=== PATIENT | female | born 1940 | race Caucasian/White ===

== ENCOUNTER 2016-05-05 14:04 | Emergency (ER) | payer MEDICARE, OTHER ==
[2016-05-05 14:16] VITALS: BP 149/88
[2016-05-05] MEDS ORDERED: Albuterol/Ipratropium 3.0-0.5 MG/3 ML Neb Soln NEB ONE (14:43)
--- NOTE | 2016-05-05 15:12 | EDM.PDOC ---
ED HISTORY OF PRESENT ILLNESS - General Chief Complaint: Respiratory Problem Stated Complaint: cough, chest congestion Time Seen by Provider: 05/05/16 14:15 Source of Information: Reports: Patient History Limitations: Reports: No limitations - History of Present Illness INITIAL COMMENTS - FREE TEXT/NARRATIVE: Fell out of bed last week, has sore ribs but not enough to cause limitations in breathing. 3 days later started to cough. No F/C, no upper respiratory symptoms. Symptom Onset Date: 05/01/16 Severity: moderate Location, General: Reports: chest Improves with: Reports: None Worsens with: Reports: None Associated Symptoms (General): Reports: cough (persistent). Denies: diaphoresis , fever/chills, shortness of breath - Related Data Allergies/ADRs: Allergies Allergy/AdvReac Type Severity Reaction Status Date / Time Penicillins Allergy Cannot Verified 05/05/16 14:05 Remember Home Meds: Home Meds Fenofibrate 160 mg PO DAILY 10/03/15 [History] Ibandronate Sodium [Boniva] 150 mg PO ASDIRECTED 10/03/15 [History] Moexipril HCl [Moexipril] 15 mg PO DAILY 10/03/15 [History] Benzonatate [Tessalon Perles] 100 mg PO QID 05/05/16 [History] Codeine/Promethazine [Phenergan with Codeine] 5 ml PO BEDTIME 05/05/16 [History] Sertraline [Zoloft] 12.5 mg PO DAILY 05/05/16 [History] Past Medical History HEENT History: Reports: Impaired vision Cardiovascular History: Reports: High cholesterol, Hypertension Genitourinary History: Reports: Retention, urinary, Other (see below) Other Genitourinary History: uterine/bladder prolapse [employer]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 Denies: fever, chills HEENT: Reports: No symptoms Respiratory: Reports: Wheezing, Cough. Denies: Shortness of Breath, Pleuritic Chest Pain, Sputum Cardiovascular: Reports: No symptoms Endocrine: Reports: no symptoms GI/Abdominal: Reports: No symptoms : Reports: no symptoms Musculoskeletal: Reports: no symptoms Skin: Reports: no symptoms Neurological: Reports: No Symptoms Psychiatric: Reports: No symptoms Hematologic/Lymphatic: Reports: no symptoms ED EXAM, GENERAL - Physical Exam Exam: See Below Exam Limited By: No limitations General Appearance: alert, WD/WN, no apparent distress Eye Exam: bilateral eye: EOMI, PERRL Ears: normal external exam Nose: normal inspection, normal mucosa Throat/Mouth: Normal inspection, Normal oropharynx, No airway compromise Head: atraumatic, normocephalic Neck: normal inspection, supple, non-tender, full range of motion Respiratory/Chest: no respiratory distress, no accessory muscle use, rhonchi, other (persistent cough) Cardiovascular: normal peripheral pulses, regular rate, rhythm, no murmur GI/Abdominal: soft, non tender Back Exam: normal inspection, full range of motion Extremities: normal range of motion, normal capillary refill Neurological: alert, oriented, CN II-XII intact, normal cognition, normal gait, no motor/sensory deficits Psychiatric: normal affect, normal mood Skin Exam: Warm, Dry, Intact, Normal color, No rash Lymphatic: no adenopathy Course - Vital Signs Last Recorded V/S: Last Vital Signs Temp 36.6 C 05/05/16 14:08 Pulse 92 05/05/16 14:08 Resp 22 H 05/05/16 14:08 BP 149/88 H 05/05/16 14:08 Pulse Ox 97 05/05/16 14:08 - Orders/Labs/Meds Orders: Active Orders 24 hr Category Date Time Status RT Aerosol Therapy [RC] ASDIRECTED Care 05/05/16 14:44 Active Chest 2V [CR] Stat Exams 05/05/16 14:43 Ordered Meds: Medications Discontinued Medications Generic Name Dose Route Start Last Admin Trade Name Freq PRN Reason Stop Dose Admin Albuterol/Ipratropium 3 ml 05/05/16 14:43 05/05/16 15:06 Duoneb 3.0-0.5 Mg/3 Ml NEB 05/05/16 14:44 3 ml ONETIME ONE Administration - Re-Assessments/Exams Free Text/Narrative Re-Assessment/Exam: 05/05/16 15:13 Decreased rhonchi with breathing treatment Departure - Departure Time of Disposition: 15:13 Disposition: Home, Self-Care 01 Condition: good Clinical Impression: Bronchitis, Rib injury Instructions: Rib Contusion, Acute Bronchitis Referrals: Gisela Zamora PA [Primary Care Provider] - Forms: ED Department Discharge Additional Instructions: 1. Take the antibiotic (Zithromax) 2. Take advil or tylenol for aches and pains 3. Use the Incentive Spirometer frequently during the day for the next few days to keep the lungs open 4. Use Robitussin DM or similar medication to help with the cough - Problem List Review Problem List Initiated/Reviewed/Updated: No - My Orders Last 24 Hours: My Active Orders 05/05/16 14:43 Chest 2V [CR] Stat 05/05/16 14:44 RT Aerosol Therapy [RC] ASDIRECTED - Assessment/Plan Last 24 Hours: My Active Orders 05/05/16 14:43 Chest 2V [CR] Stat 05/05/16 14:44 RT Aerosol Therapy [RC] ASDIRECTED Assessment:: 1. Rib contusion 2. Bronchitis with long h/o second-hand smoke Plan: 1. Zithromax 2. Phenergan with codeine 3. Robitussin 4. Recheck with PCP in 4-7 days
== END 2016-05-05 15:50 | disposition home or self-care (01) ==
LOC: LL.ED 14:04
DX: J40 Bronchitis, not specified as acute or chronic (principal); S29.8XXA Other specified injuries of thorax, initial encounter; E78.00 Pure hypercholesterolemia, unspecified; I10 Essential (primary) hypertension; F41.9 Anxiety disorder, unspecified; F32.9 Major depressive disorder, single episode, unspecified; Z88.0 Allergy status to penicillin; W06.XXXA Fall from bed, initial encounter
CPT/HCPCS: 71020; 94640; 99283

== ENCOUNTER 2016-08-21 20:15 | Emergency (ER) | payer MEDICARE, OTHER ==
--- NOTE | 2016-08-21 20:24 | EDM.PDOC ---
ED HPI GENERAL MEDICAL PROBLEM - General Chief Complaint: General Stated Complaint: burning/bloody discharge Time Seen by Provider: 08/21/16 20:15 Source of Information: Reports: Patient, Old Records ([facility] chart/EMR), Other (Friend) History Limitations: Reports: No Limitations - History of Present Illness INITIAL COMMENTS - FREE TEXT/NARRATIVE: Patient was brought to the emergency room via private automobile by her friend for evaluation of 6/10 burning sensation from her vaginal area with symptoms starting at about 10 AM this morning. She also complains of some nonspecific dysuria and urinary frequency since that time him a however no history of urinary incontinence, etc. The patient did complete a 10 day course of Septra earlier this morning secondary to suspected UTI, although her regular provider apparently did not conduct any urine evaluations? She does state that she is having a possible mild bloodstained vaginal discharge since this morning when wiping and also noticed this in her underwear. By patient history she had her pessary removed on a permanent basis on 06/17/16 secondary to nonspecific irritation in the vaginal area from this treatment. Her uterine prolapse has otherwise been stable, although this is severe in nature. She denies any colic or other UTI symptoms. No recent history of abdominal pain, heartburn, nausea, diarrhea, melena, gross hematochezia, or any food intolerance, including fatty foods, etc.. The patient also denies any recent fever, cough, wheezing, dyspnea , etc.. The patient denies any chest pain/pressure, heart flutter, dizziness, orthostasis, orthopnea, diaphoresis, paresthesias, recent decreased exercise tolerance, or any other anginal-type symptoms. diffuse urinary Onset: Gradual Onset Date: 08/21/16 Onset Time: 10:00 Duration: Constant, Getting Worse Location: Reports: Other (Vaginal area as above) Quality: Reports: Burning Severity: Moderate Improves with: Reports: None Worsens with: Reports: None Context: Reports: Other (As above) Associated Symptoms: Denies: Confusion, Chest Pain, Cough, Diaphoresis, Fever/ Chills, Loss of Appetite, Malaise, Nausea/Vomiting, Shortness of Breath, Syncope , Weakness Vaginal Pain Score (Numeric/FACES): 6 - Related Data Allergies Allergy/AdvReac Type Severity Reaction Status Date / Time Penicillins Allergy Cannot Verified 05/05/16 14:05 Remember Home Meds: Home Meds Fenofibrate 160 mg PO DAILY 10/03/15 [History] Ibandronate Sodium [Boniva] 150 mg PO ASDIRECTED 10/03/15 [History] Moexipril HCl [Moexipril] 15 mg PO DAILY 10/03/15 [History] Sertraline [Zoloft] 12.5 mg PO DAILY 05/05/16 [History] Past Medical History HEENT History: Reports: Cataract, Impaired Vision, Other (See Below). Denies: Allergic Rhinitis, Glaucoma, Hard of Hearing, Macular Degeneration, Otitis Media , Retinal Detachment Other HEENT History: Patient wears glasses Cardiovascular History: Reports: High Cholesterol, Hypertension. Denies: Afib, Aneurysm, Arrhythmia, Blood Clots/VTE/DVT, CAD, Heart Murmur, [place], PVD, Syncope Respiratory History: Denies: Asthma, COPD, PE, Pneumothorax, Sleep Apnea Gastrointestinal History: Reports: Diverticulosis, Other (See Below). Denies: Bowel Obstruction, Celiac Disease, Cholelithiasis, Chronic Constipation, Chronic Diarrhea, Colon Polyp, Gastritis, GERD, GI Bleed, Hiatal Hernia, Inflammatory Bowel Disease, Irritable Bowel Syndrome, PUD Other Gastrointestinal History: History of diverticulitis Genitourinary History: Reports: Retention, Urinary, UTI, Recurrent, Other (See Below). Denies: Acute Renal Failure, Chronic Renal Insuffiency, Renal Calculus , STD, Urinary Incontinence Other Genitourinary History: uterine/bladder prolapse [employer]NAGEMENT History: Reports: , Prolapsed Uterus. Denies: PID, Spontaneous : 3 Para: 3 (Full term without complications during pregnancies or deliveries) LMP (Approximate): Menopausal Other OB/BYN History: Menopause at age 44, note moderate uterine prolapse with previous pessary therapy Musculoskeletal History: Reports: Arthritis, Back Pain, Chronic, Fracture, Neck Pain, Chronic, Osteoarthritis, Osteoporosis, Other (See Below). Denies: Amputation, Gout, RA, SLE Other Musculoskeletal History: Mid thoracic vertebral body compression fracture in April 2016 in the T7 versus T8 region by x-ray Neurological History: Reports: Seizure, Other (See Below). Denies: Cerebral Aneurysms, Concussion, CVA, Headaches, Chronic, Head Trauma, Migraines, MS, Neuropathy, Peripheral, Parkinson's, TIA Other Neuro History: Unknown type of seizure in 1990 with workup as below and antiseizure medications for only one year Psychiatric History: Reports: Anxiety, Depression. Denies: Abuse, Victim of, ADD, ADHD, Addiction, Psych Hospitalization(s), PTSD, Suicide Attempt, Suicidal Ideation Endocrine/Metabolic History: Reports: Obesity/BMI 30+, Osteoporosis. Denies: Diabetes, Type I, Diabetes, Type II, Hypothyroidism, IDDM Hematologic History: Reports: None. Denies: Anemia, Blood Transfusion(s), Iron Deficiency Immunologic History: Reports: None. Denies: AIDS, HIV, SLE Oncologic (Cancer) History: Reports: None. Denies: Basal Cell Carcinoma, Cervix , Hodgkin's Lymphoma, Leukemia, Lymphoma, Malignant Melanoma, Non-Hodgkin's Lymphoma, Squamous Cell Carcinoma Dermatologic History: Reports: None. Denies: Eczema, Psoriasis - Infectious Disease History Infectious Disease History: Reports: Chicken Pox, Measles. Denies: C-Difficile , Meningitis, Mononucleosis, MRSA, Mumps, Pertussis (Whooping Cough), Rheumatic Fever, Rubella, Scarlet Fever, Shingles, VRE - Past Surgical History Head Surgeries/Procedures: Reports: None HEENT Surgical History: Reports: Adenoidectomy, Cataract Surgery, Tonsillectomy. Denies: Eye Surgery, Laser Surgery, LASIK, Myringotomy w Tube(s) , Naso-Sinus Surgery, Oral Surgery Other HEENT Surgeries/Procedures: Tonsillectomy and adenoidectomy at about age 11, bilateral cataract surgery in 2017 Cardiovascular Surgical History: Reports: None. Denies: Varicose, Vascular Surgery Respiratory Surgical History: Reports: None. Denies: Lung Biopsies, Thoracentesis GI Surgical History: Reports: Colonoscopy, Other (See Below). Denies: Appendectomy, Cholecystectomy, EGD, Hernia, Abdominal, Hernia, Inguinal, Hernia Repair/Other, Polypectomy Other GI Surgeries/Procedures: Colonoscopy in 2005 Female Surgical History: Reports: Tubal Ligation, Other (See Below). Denies : Section, Oophorectomy, Salpingo-Oophorectomy Other Female Surgeries/Procedures: Bilateral tubal ligation in 1979 Endocrine Surgical History: Reports: None. Denies: Thyroid Biopsy Neurological Surgical History: Reports: Thoracic Spine, Vertebroplasty, Other ( See Below). Denies: C-Spine, Discectomy, Laminectomy, Lumbar Spine, Spinal Fusion Other Neurological Surgeries/Procedures: T7 versus T8 kyphoplasty in May 2016 Musculoskeletal Surgical History: Reports: Knee Replacement, Other (See Below). Denies: Arthroscopic Knee, Arthroscopic Procedure, ORIF, Shoulder Surgery Other Musculoskeletal Surgeries/Procedures:: Left knee TEP in 2014 with right knee TEP in 2016 Oncologic Surgical History: Reports: None Dermatological Surgical History: Reports: None - Past Imaging History Past Imaging History: Reports: CAT Scan (Head in 1990), DEXA Scan (06/25/16 with previous evaluation on 02/28/11), EEG (1990), MRI (Left knee on 08/18/12) Social & Family History - Tobacco Use Smoking Status *Q: Never Smoker Smoking Cessation Information Provided To Patient: No Second Hand Smoke Exposure: No Second Hand Smoke Education Provided: No - Living Situation & Occupation Living situation: Reports: (1990, 3 children), Alone Occupation: Employed ([employer] in [place]) ED ROS GENERAL - Review of Systems Review Of Systems: ROS reveals no pertinent complaints other than HPI. ED EXAM, GENERAL - Physical Exam Exam: See Below Exam Limited By: No Limitations General Appearance: Alert, WD/WN, No Apparent Distress, Anxious (Mild) Head: Atraumatic, Normocephalic Neck: Normal Inspection, Supple, Non-Tender, Full Range of Motion. No: Lymphadenopathy (L), Thyromegaly Respiratory/Chest: No Respiratory Distress, Lungs Clear, Normal Breath Sounds, No Accessory Muscle Use, Chest Non-Tender. No: Pleural Rub, Retractions Cardiovascular: Normal Peripheral Pulses, Regular Rate, Rhythm, No Edema, No Gallop, No JVD, No Murmur, No Rub. No: Gallop/S3, Gallop/S4, Friction Rub Peripheral Pulses: 2+: Radial (L), Radial (R) GI/Abdominal: Normal Bowel Sounds, Soft, Non-Tender, No Organomegaly, No Distention, No Abnormal Bruit, No Mass, Pelvis Stable, Other (Obese). No: Guarding (Female) Exam: Other (Evidence of significant vaginal discharge or bleeding with moderate atrophic vaginitis and mild inflammation at the introitus but no acute lesions noted, only mild to moderate uterine prolapse with Valsalva maneuver and abdominal pressure although moderate in nature by clinical history when standing). No: Adnexal Mass, Adnexal Tenderness, Cervical Discharge, Cervical Lesions, Cervix Motion Tenderness, Enlarged Uterus, Uterine Tenderness , Vaginal Bleeding, Vaginal Discharge, Vaginal Lesions, Vaginal Tears Rectal (Female) Exam: Deferred Back Exam: Normal Inspection, Full Range of Motion. No: CVA Tenderness (L), CVA Tenderness (R), Muscle Spasm Extremities: Normal Inspection, Normal Range of Motion, Non-Tender, No Pedal Edema, Normal Capillary Refill. No: Marques's Sign Neurological: Alert, Oriented, CN II-XII Intact, Normal Cognition, Normal Gait, No Motor/Sensory Deficits Psychiatric: Anxious (Mild), Depressed Mood (Borderline with adequate eye contact) Skin Exam: Warm, Dry, Intact, Normal Color, No Rash. No: Diaphoretic, Wound/ Incision Lymphatic: No Adenopathy Course - Vital Signs Last Recorded V/S: Last Vital Signs Temp 36.8 C 08/21/16 20:16 Pulse Resp 18 08/21/16 20:16 BP 161/81 H 08/21/16 20:16 Pulse Ox 96 08/21/16 20:16 Vital Signs - 24 hr 08/21/16 20:16 Temperature [ 36.8 C Oral] Respiratory 18 Rate Blood Pressure 161/81 H [Left Upper Arm ] O2 Sat by Pulse 96 Oximetry - Orders/Labs/Meds Orders: Active Orders 24 hr Category Date Time Status CULTURE URINE [RM] Stat Lab 08/21/16 20:50 Received GENITAL CULTURE [MREF] Stat Lab 08/21/16 20:50 Received Obtain Past Medical Record [OM.PC] Urgent Oth 08/21/16 20:24 Active Labs: Laboratory Tests 08/21/16 Range/Units 20:50 Specimen Type Urinqcath Urine Color Yellow Urine Appearance Clear Urine pH 6.0 (5.0-9.0) Ur Specific [place] 1.015 (1.005-1.030) Urine Protein Negative (NEGATIVE) mg/dL Urine Glucose (UA) Negative (NEGATIVE) mg/dL Urine Ketones Negative (NEGATIVE) mg/dL Urine Occult Blood Trace-intact H (NEGATIVE) Urine Nitrite Negative (NEGATIVE) Urine Bilirubin Negative (NEGATIVE) Urine Urobilinogen 0.2 (0.2-1.0) E.U./dL Ur Leukocyte Esterase Negative (NEGATIVE) Urine RBC 5-10 H /HPF Urine WBC 0-5 /HPF Ur Epithelial Cells Moderate H /LPF Urine Bacteria Few (NONE TO FEW) /HPF Microbiology 08/21/16 20:50 Wet Prep - Final Vagina Wet prep negative, Urine specimen set up for culture and sensitivity Specimen collected from vaginal area for culture and sensitivity Departure - Departure Time of Disposition: 21:45 Disposition: Home, Self-Care 01 Condition: Good Clinical Impression: Uterine prolapse, Hypertension, Hyperlipidemia, Osteoarthritis, Mixed anxiety depressive disorder, Atrophic vaginitis - Discharge Information Instructions: Atrophic Vaginitis, [id number] Referrals: Gisela Zamora PA [Primary Care Provider] - Forms: ED Department Discharge Additional Instructions: 1. Follow up with your regular provider in 10-14 days as directed. 2. Continue to use K-Y jelly as discussed 3. Urine tests should be repeated at follow up visit with possible repeat urine culture,etc. at that time. Today's urine culture is pending with results in about 2-3 days. We will call you, if we need to change your therapy. 4. Continue to watch your blood pressures closely through your regular provider - Problem List & Annotations (1) Atrophic vaginitis SNOMED Code(s): 31472906, 35015782 Code(s): N95.2 - POSTMENOPAUSAL ATROPHIC VAGINITIS Status: Acute Priority : High Onset Date: ~08/21/16 Annotation/Comment:: Probable mild spotting from atrophic vaginitis at the introitus. Continue K-Y jelly as before and as directed, which the patient has also apparently been using recently. (2) Uterine prolapse SNOMED Code(s): 10585544, 46993934 Code(s): N81.4 - UTEROVAGINAL PROLAPSE, UNSPECIFIED Status: Acute Priority: High Annotation/Comment:: Note recently discontinued pessary treatment as above on 06/17/16 by her regular provider. Only mild to moderate uterine prolapse by my exam, although evidence of moderate to severe uterine prolapse when standing by patient history. Patient may benefit from a hysterectomy. Continue close follow-up by her regular provider with [employer] referral depending on her clinical course. No history or evidence of postmenopausal bleeding, current and vaginal infection, etc. (3) Hyperlipidemia SNOMED Code(s): 38362337 Code(s): E78.5 - HYPERLIPIDEMIA, UNSPECIFIED Status: Chronic Priority: Medium Annotation/Comment:: Currently under therapy Qualifiers: Hyperlipidemia type: mixed hyperlipidemia Qualified Code(s): E78.2 - Mixed hyperlipidemia (4) Hypertension SNOMED Code(s): 02048709 Code(s): I10 - ESSENTIAL (PRIMARY) HYPERTENSION Status: Chronic Priority : Medium Annotation/Comment:: Blood Pressure is somewhat elevated in the emergency room. Continue to observe closely by her regular provider Qualifiers: Hypertension type: essential hypertension Qualified Code(s): I10 - Essential (primary) hypertension (5) Mixed anxiety depressive disorder SNOMED Code(s): 193986026 Code(s): F41.8 - OTHER SPECIFIED ANXIETY DISORDERS Status: Acute Priority : Medium Annotation/Comment:: Stable by history (6) Osteoarthritis SNOMED Code(s): 056422901 Code(s): M19.90 - UNSPECIFIED OSTEOARTHRITIS, UNSPECIFIED SITE Status: Chronic Priority: Medium Annotation/Comment:: Stable by history Qualifiers: Osteoarthritis location: multiple joints Osteoarthritis type: primary Qualified Code(s): M15.0 - Primary generalized (osteo)arthritis - Problem List Review Problem List Initiated/Reviewed/Updated: Yes - My Orders Last 24 Hours: My Active Orders 08/21/16 20:24 Obtain Past Medical Record [OM.PC] Urgent 08/21/16 20:50 CULTURE URINE [RM] Stat GENITAL CULTURE [MREF] Stat - Assessment/Plan Last 24 Hours: My Active Orders 08/21/16 20:24 Obtain Past Medical Record [OM.PC] Urgent 08/21/16 20:50 CULTURE URINE [RM] Stat GENITAL CULTURE [MREF] Stat Assessment:: As above Plan: As above. Extensive precautions were given to the patient and her friend, who are in agreement with the treatment plan. See Patient Instructions for further treatment and plan.
[2016-08-21 20:26] VITALS: BP 161/81
== END 2016-08-21 21:45 | disposition home or self-care (01) ==
LOC: LL.ED 20:15
DX: N81.4 Uterovaginal prolapse, unspecified (principal); N95.2 Postmenopausal atrophic vaginitis; E78.5 Hyperlipidemia, unspecified; I10 Essential (primary) hypertension; F41.8 Other specified anxiety disorders; M19.90 Unspecified osteoarthritis, unspecified site; Z87.440 Personal history of urinary (tract) infections; E66.9 Obesity, unspecified; M81.0 Age-related osteoporosis without current pathological fracture; Z98.890 Other specified postprocedural states; Z98.41 Cataract extraction status, right eye; Z98.42 Cataract extraction status, left eye; Z98.51 Tubal ligation status; Z96.651 Presence of right artificial knee joint; Z79.899 Other long term (current) drug therapy; Z88.0 Allergy status to penicillin
CPT/HCPCS: 81001; 87070; 87086; 87205; 87210; 99283

== ENCOUNTER 2023-10-28 17:21 | Emergency (ER) | payer MEDICARE, OTHER ==
[2023-10-28] MEDS: Diphtheria,Pertussis(Acell),Tetanus Vaccine 0.5 ML Syringe IM ONE (17:49)
[2023-10-28 17:59] VITALS: BP 179/81; PULSE 73
== END 2023-10-28 18:15 | disposition home or self-care (01) ==
LOC: LL.ED 17:21
DX: S01.01XA Laceration without foreign body of scalp, initial encounter (principal); Z23 Encounter for immunization; I10 Essential (primary) hypertension; E78.00 Pure hypercholesterolemia, unspecified; E66.9 Obesity, unspecified; Z88.0 Allergy status to penicillin; Z79.899 Other long term (current) drug therapy; W23.1XXA Caught, crushed, jammed, or pinched between stationary objects, initial encounter
CPT/HCPCS: 12001; 90471; 90715; 99282-25